=== PATIENT | male | born 1990 | race Caucasian/White ===

== ENCOUNTER → 2017-04-06 | Outpatient (REF) | payer OTHER ==
[2017-04-06 18:14] LABS: BASO % 0.4 % (0.0-1.0); EOS # 0.1 10^3/uL (0.0-0.50); EOS % 0.9 % (0.0-3.0); HEMATOCRIT 46.7 % (42.0-52.0); HEMOGLOBIN 15.7 g/dl (14.0-18.0); IMMATURE GRANULOCYTE # 0.1 10^3/uL (0-0); IMMATURE GRANULOCYTE % 0.6 % (0-0); LYMPH # 1.9 10^3/uL (1.5-6.5); LYMPH % 23.5 % (24.0-44.0); MEAN CORPUSCULAR HEMOGLOBIN 28.6 pg (27.0-33.0); MEAN CORPUSCULAR HGB CONC 33.6 g/dl (32.0-36.5); MEAN CORPUSCULAR VOLUME 85.1 fl (80.0-96.0); MONO # 0.5 10^3/uL (0.0-0.8); MONO % 6.7 % (0.0-5.0); NEUTROPHILS # 5.5 10^3/uL (1.8-7.7); NEUTROPHILS % 67.9 % (36.0-66.0); PLATELET COUNT, AUTOMATED 225 10^3/uL (150-450); RED BLOOD COUNT 5.49 10^6/uL (4.30-6.10); RED CELL DISTRIBUTION WIDTH 13.1 % (11.5-14.5)
[2017-04-06 18:27] LABS: ESTIMATED AVERAGE GLUCOSE 105 MG/DL (60-110); HEMOGLOBIN A1c 5.3 %
[2017-04-06 18:51] LABS: ALBUMIN 4.7 GM/DL (3.2-5.2); ALBUMIN/GLOBULIN RATIO 1.68 (1.00-1.93); ALKALINE PHOSPHATASE 76 U/L (45-117); ALT/SGPT 31 U/L (12-78); ANION GAP 8 MEQ/L (8-16); AST/SGOT 22 U/L (7-37); BILIRUBIN,TOTAL 1.1 MG/DL (0.2-1.0); BLOOD UREA NITROGEN 13 MG/DL (7-18); CALCIUM LEVEL 8.7 MG/DL (8.5-10.1); CARBON DIOXIDE LEVEL 29 MEQ/L (21-32); CHLORIDE LEVEL 105 MEQ/L (98-107); CREATININE FOR GFR 0.83 MG/DL (0.70-1.30); FREE T4 1.27 NG/DL (0.76-1.46); GLOMERULAR FILTRATION RATE > 60.0 (>60); GLUCOSE, FASTING 82 MG/DL (70-105); SODIUM LEVEL 142 MEQ/L (136-145); TOTAL PROTEIN 7.5 GM/DL (6.4-8.2)
[2017-04-06 23:36] LABS: TOTAL 25(OH) VITAMIN D 10.8 NG/ML (30.0-100.0)
== END ==
LOC: M SFHCPLAZ 15:40
DX: F41.8 Other specified anxiety disorders (principal); E66.09 Other obesity due to excess calories

== ENCOUNTER → 2017-07-27 | Outpatient (REF) | payer OTHER ==
[2017-07-27 12:20] LABS: TOTAL 25(OH) VITAMIN D 82.1 NG/ML (30.0-100.0)
[2017-07-27 12:21] LABS: PTH INTACT 38.9 PG/ML (18.5-88.0)
[2017-07-27 12:33] LABS: ALBUMIN/GLOBULIN RATIO 1.43 (1.00-1.93); ALKALINE PHOSPHATASE 69 U/L (45-117); ALT/SGPT 24 U/L (12-78); ANION GAP 5 MEQ/L (8-16); AST/SGOT 22 U/L (7-37); BILIRUBIN,TOTAL 0.6 MG/DL (0.2-1.0); BLOOD UREA NITROGEN 18 MG/DL (7-18); CARBON DIOXIDE LEVEL 29 MEQ/L (21-32); CHLORIDE LEVEL 108 MEQ/L (98-107); CREATININE FOR GFR 0.91 MG/DL (0.70-1.30); GLOMERULAR FILTRATION RATE > 60.0 (>60); GLUCOSE, FASTING 78 MG/DL (70-100); POTASSIUM SERUM 4.1 MEQ/L (3.5-5.1); SODIUM LEVEL 142 MEQ/L (136-145); TOTAL PROTEIN 6.8 GM/DL (6.4-8.2)
== END ==
LOC: M SFHCPLAZ 10:02
DX: E55.9 Vitamin D deficiency, unspecified (principal)
CPT/HCPCS: 80053